=== PATIENT | male | born 1955 | race Caucasian/White ===

== ENCOUNTER → 2020-09-20 | Outpatient (CLI) | payer OTHER, SELFPAY ==
--- NOTE | 2020-09-20 15:39 | REP ---
INDICATION: COUGH COMPARISON: None. TECHNIQUE: PA/Lateral FINDINGS: Lungs: Clear, no infiltrate. Heart: Normal in size. Mediastinum: Mediastinal silhouette unremarkable. Pleural angles: Unremarkable.. Bones and soft tissues: Unremarkable. IMPRESSION: No acute pulmonary disease. <Electronically signed by Gilbert Rodriguez > 09/20/20 [id number]
== END ==
LOC: M RAD 15:20
PROVIDERS: ATTEND Physician Assistant
DX: R05 Cough (principal)

== ENCOUNTER → 2021-04-19 | Outpatient (REF) | payer OTHER | LOC: M SFHCDERM 14:19 | PROVIDERS: ATTEND Nurse Practitioner Family | DX: C44.319 Basal cell carcinoma of skin of other parts of face (principal) ==

== ENCOUNTER → 2021-07-19 | Outpatient (REF) | payer OTHER | LOC: M SFHCDERM 17:33 | PROVIDERS: ATTEND Nurse Practitioner Family | DX: L57.0 Actinic keratosis (principal) | CPT/HCPCS: 11102; 88305; G0463 ==

== ENCOUNTER → 2022-02-25 | Outpatient (REF) | payer OTHER | LOC: M SFHCDERM 17:24 | PROVIDERS: ATTEND Nurse Practitioner Family | DX: I78.1 Nevus, non-neoplastic (principal) ==

== ENCOUNTER → 2022-10-09 | Outpatient (REF) | payer OTHER | LOC: M SFHCDERM 17:05 | PROVIDERS: ATTEND Dermatology | DX: Z51.89 Encounter for other specified aftercare (principal) ==